=== PATIENT | female | born 1955 | race African-American/Black ===

== ENCOUNTER 2016-08-13 21:48 | Inpatient (IN) | payer MEDICAID ==
[~2016-08-13] VITALS: Ht 165.1 cm; Wt 67.2 kg
[~2016-08-13 21:48] MED LIST: AMLO10TA2 PO; AMLO5TAB2 PO; ATOR40TA78 PO; CHLO50TA PO; CYAN500L PO; CYCL5TAB PO; INSU100C SQ-INSULIN; INSU100I28 SQ-INSULIN; INSU100V8 SQ; LISI-170 PO; MORP50CA19 PO; NPH,100V SQ-VACC; NPH,100V4 SQ; POTA10TA11 PO
[2016-08-13] MEDS ORDERED: ONDANSETRON 2MG/ML, 2ML IVPush ONE (22:00)
[2016-08-13] MEDS ORDERED: SODIUM CHLORIDE FLUSH 10ML SYR IVF ONE (22:00)
[2016-08-13] MEDS ORDERED: MORPHINE SULFATE 4 MG/ML, 1ML IVPush PRN (22:00)
[2016-08-13] MEDS ORDERED: SODIUM CHLORIDE 0.9% 1,000ML IVBOLUS ONE (22:00)
[2016-08-13] MEDS ORDERED: MORPHINE SULFATE 4 MG/ML, 1ML ONE (22:05)
[2016-08-13] MEDS ORDERED: ONDANSETRON 2MG/ML, 2ML ONE (22:05)
[2016-08-13] MEDS ORDERED: HYDR12.53 PO (22:29)
[2016-08-13 22:38] LABS: ASPARTATE AMINO TRANSFERASE 37 U/L (15-37); BLOOD UREA NITROGEN 38 mg/dL (7-18)
[2016-08-13 22:46] LABS: DIFF TOTAL CELLS COUNTED 100 CELL DIFF
[2016-08-13 22:53] LABS: LARGE PLATELETS 1+; VERIFY COUNTS? YES
[2016-08-13 23:25] LABS: PH, VENOUS 7.291 pH (7.320-7.420)
[2016-08-14] MEDS ORDERED: ONDANSETRON 2MG/ML, 2ML IVPush PRN (02:00)
[2016-08-14] MEDS ORDERED: NITROGLYCERIN 0.4 MG BOTTLE (25 TABS) SL PRN (02:00)
[2016-08-14] MEDS ORDERED: ONDANSETRON ODT 4 MG PO PRN (02:00)
[2016-08-14] MEDS ORDERED: LABETALOL 5MG/ML, 20ML IVPush PRN (02:00)
[2016-08-14] MEDS ORDERED: DEXTROSE 50%, 50ML SYRINGE IVPush PRN (02:30)
[2016-08-14] MEDS ORDERED: GLUCAGON 1 MG IM PRN (02:30)
[2016-08-14] MEDS ORDERED: DEXTROSE 4 GM TAB.CHEW PO PRN (02:30)
[2016-08-14] MEDS: hydrALAzine 20 MG/ML, 1ML IVPush PRN (02:41)
[2016-08-14 02:54] VITALS: BP 189/111
[2016-08-14 03:05] VITALS: BP 142/84
[2016-08-14] MEDS: NICOTINE 7 MG/24 HR PATCH.TD24 TD SCH (03:34)
[2016-08-14] MEDS: HEPARIN 5,000 UNITS/ML, 1ML SQ SCH ×3 (03:36→17:37)
[2016-08-14] MEDS: NS + 20MEQ KCL 1,000 ML IV SCH ×3 (03:37→12:00)
[2016-08-14] MEDS: INSULIN ASPART 100 UNITS/ML, PEN SQ-INSULIN SCH ×5 (04:01→21:00)
[2016-08-14] MEDS ORDERED: INSULIN ASPART 70/30 100U/ML, PEN SQ-INSULIN ONE (04:51)
[2016-08-14 07:31] VITALS: BP 124/81
[2016-08-14] MEDS ORDERED: INSULIN NPH HUMAN 100 UNIT/ML, 3ML VIAL SQ-INSULIN SCH (09:00)
[2016-08-14] MEDS: LISINOPRIL 20 MG TABLET PO SCH (09:00)
[2016-08-14] MEDS: AMLODIPINE 5 MG TABLET PO SCH (09:00)
[2016-08-14] MEDS: SODIUM CHLORIDE FLUSH 10ML SYR IVF SCH ×2 (09:00→20:57)
[2016-08-14] MEDS ORDERED: CYCLOBENZAPRINE 10 MG TABLET PO SCH (09:00)
[2016-08-14] MEDS ORDERED: HYDROcodone/APAP 5/325 TABLET PO PRN (13:00)
[2016-08-14] MEDS ORDERED: CYCLOBENZAPRINE 10 MG TABLET PO PRN ×2 (13:00→14:00)
[2016-08-14 15:55] LABS: PATH.CAST-FLAG NOT PRESENT; SPERM-FLAG NOT PRESENT; SRC-FLAG NOT PRESENT; XTAL-FLAG NOT PRESENT; YLC-FLAG NOT PRESENT
[2016-08-14 20:47] VITALS: BP 167/97
[2016-08-14] MEDS: GABAPENTIN 100 MG CAPSULE PO SCH (20:57)
[2016-08-14] MEDS: ATORVASTATIN 40 MG TABLET PO SCH (20:57)
[2016-08-14] MEDS: RANITIDINE 15 MG/ML ORAL SOL PO SCH (21:07)
[2016-08-14] MEDS: INSULIN NPH HUMAN 100 UNIT/ML, 3ML VIAL SQ-INSULIN SCH (21:07)
[2016-08-14] MEDS: ACETAMINOPHEN 325 MG TABLET PO PRN (23:14)
[2016-08-14] MEDS: DIPHENHYDRAMINE 50 MG CAPSULE PO PRN (23:14)
[2016-08-15] MEDS: NS + 20MEQ KCL 1,000 ML IV SCH ×2 (00:48→11:25)
[2016-08-15] MEDS: HEPARIN 5,000 UNITS/ML, 1ML SQ SCH ×3 (03:06→18:09)
[2016-08-15 03:17] VITALS: BP 137/73
[2016-08-15 05:42] LABS: BLOOD UREA NITROGEN 21 mg/dL (7-18)
[2016-08-15 05:47] LABS: ASPARTATE AMINO TRANSFERASE 26 U/L (15-37)
[2016-08-15] MEDS: INSULIN ASPART 100 UNITS/ML, PEN SQ-INSULIN SCH ×5 (06:30→21:24)
[2016-08-15 06:56] VITALS: BP 149/84
[2016-08-15] MEDS: GABAPENTIN 100 MG CAPSULE PO SCH ×2 (09:46→21:16)
[2016-08-15] MEDS: SODIUM CHLORIDE FLUSH 10ML SYR IVF SCH ×2 (09:46→21:16)
[2016-08-15] MEDS: AMLODIPINE 5 MG TABLET PO SCH (09:46)
[2016-08-15] MEDS: LISINOPRIL 20 MG TABLET PO SCH (09:47)
[2016-08-15] MEDS: NICOTINE 7 MG/24 HR PATCH.TD24 TD SCH (09:47)
[2016-08-15] MEDS: RANITIDINE 15 MG/ML ORAL SOL PO SCH (09:47)
[2016-08-15] MEDS: INSULIN NPH HUMAN 100 UNIT/ML, 3ML VIAL SQ-INSULIN SCH ×2 (09:48→21:23)
[2016-08-15 12:52] VITALS: BP 144/88
[2016-08-15 18:45] VITALS: BP 150/91
[2016-08-15] MEDS: ATORVASTATIN 40 MG TABLET PO SCH (21:16)
[2016-08-15] MEDS: DIPHENHYDRAMINE 50 MG CAPSULE PO PRN (21:16)
[2016-08-15] MEDS: ACETAMINOPHEN 325 MG TABLET PO PRN (21:16)
[2016-08-16] VITALS (9 sets, daily range): BP systolic 106–172; BP diastolic 70–106
[2016-08-16] MEDS: HEPARIN 5,000 UNITS/ML, 1ML SQ SCH ×3 (00:37→16:46)
[2016-08-16] MEDS: POTASSIUM CHLORIDE 10 MEQ in SODIUM CHLORIDE 0.9% 1,000 ML IV SCH ×2 (06:07→16:00)
[2016-08-16] MEDS: INSULIN ASPART 100 UNITS/ML, PEN SQ-INSULIN SCH ×3 (06:56→16:00)
[2016-08-16] MEDS: AMLODIPINE 5 MG TABLET PO SCH (07:15)
[2016-08-16] MEDS: RANITIDINE 15 MG/ML ORAL SOL PO SCH (07:15)
[2016-08-16] MEDS: LISINOPRIL 20 MG TABLET PO SCH (07:15)
[2016-08-16] MEDS: GABAPENTIN 100 MG CAPSULE PO SCH (07:15)
[2016-08-16] MEDS: SODIUM CHLORIDE FLUSH 10ML SYR IVF SCH (07:31)
[2016-08-16] MEDS: INSULIN NPH HUMAN 100 UNIT/ML, 3ML VIAL SQ-INSULIN SCH (07:32)
[2016-08-16] MEDS: hydrALAzine 20 MG/ML, 1ML IVPush PRN ×2 (07:32→11:20)
[2016-08-16] MEDS: NICOTINE 7 MG/24 HR PATCH.TD24 TD SCH (07:32)
[2016-08-16] MEDS ORDERED: MIDAZOLAM 1 MG/ML, 5ML ONE (09:33)
[2016-08-16] MEDS ORDERED: FENTANYL PF 100 MCG/2ML ONE (09:33)
[2016-08-16] MEDS ORDERED: NALOXONE 1 MG/ML, 2ML ONE (09:34)
[2016-08-16] MEDS ORDERED: FLUMAZENIL 0.1 MG/1 ML, 5ML ONE (09:34)
[2016-08-16] MEDS ORDERED: GABA-826 PO (13:13)
[2016-08-16] MEDS ORDERED: CYCL5TAB PO (13:13)
[2016-08-16] MEDS ORDERED: ASPI-621 PO (13:13)
[2016-08-16] MEDS ORDERED: HYDR-3240 PO (15:48)
[2016-08-17] MEDS ORDERED: ASPIRIN 81 MG TABLET EC PO SCH (06:00)
== END 2016-08-16 19:00 | disposition home or self-care (01) | DRG 682 ==
LOC: ED 23:58 → EDIP 08-14 00:34 → 4NOR 08-14 02:00
PROVIDERS: ADMIT Family Medicine; ATTEND Family Medicine
PROC: 0BBL3ZX Excision of Left Lung, Percutaneous Approach, Diagnostic (ICD-10-PCS; principal; 2016-08-16)
DX: N17.9 Acute kidney failure, unspecified (principal); K85.90 Acute pancreatitis without necrosis or infection, unspecified; E87.2 Acidosis; E87.1 Hypo-osmolality and hyponatremia; E86.0 Dehydration; G89.29 Other chronic pain; K21.9 Gastro-esophageal reflux disease without esophagitis; E78.5 Hyperlipidemia, unspecified; F17.210 Nicotine dependence, cigarettes, uncomplicated; D64.9 Anemia, unspecified; I10 Essential (primary) hypertension; E11.65 Type 2 diabetes mellitus with hyperglycemia; E11.42 Type 2 diabetes mellitus with diabetic polyneuropathy; R91.8 Other nonspecific abnormal finding of lung field; Z91.19 Patient's noncompliance with other medical treatment and regimen; Z71.6 Tobacco abuse counseling; Z79.899 Other long term (current) drug therapy; Z79.4 Long term (current) use of insulin; Z82.5 Family history of asthma and other chronic lower respiratory diseases; Z83.3 Family history of diabetes mellitus
CPT/HCPCS: 32405; 36415; 71010; 74176; 77012; 80053; 81001; 82010; 82803; 82947; 82962; 83605; 83690; 83735; 84100; 85025; 87046; 87086; 87324; 87899; 88305; 89055; 96374; 96375; 99156; 99157; J1644; J1815; J2250; J2405; J3010; J3480; J0360; J2310; J7030

== ENCOUNTER 2016-10-02 15:59 | Inpatient (IN) | payer MEDICAID ==
[~2016-10-02] VITALS: Ht 165.1 cm; Wt 69.1 kg
[~2016-10-02 15:59] MED LIST changes: +ASPI-621 PO; +GABA-826 PO; +HYDR-3240 PO; +HYDR12.53 PO
[2016-10-02] MEDS ORDERED: SODIUM CHLORIDE 0.9% 1,000 ML IV ONE (16:09)
[2016-10-02] MEDS ORDERED: SODIUM CHLORIDE 0.9% 1,000ML IVBOLUS ONE (16:30)
[2016-10-02] MEDS ORDERED: SODIUM CHLORIDE FLUSH 10ML SYR IVF ONE (16:30)
[2016-10-02 16:35] LABS: HEMATOCRIT 33.1 % (34.6-47.8); HEMOGLOBIN 10.7 g/dL (11.7-16.4)
[2016-10-02 16:42] LABS: ASPARTATE AMINO TRANSFERASE 33 U/L (15-37); BLOOD UREA NITROGEN 20 mg/dL (7-18)
[2016-10-02] MEDS ORDERED: HYDR25TA11 PO (16:49)
[2016-10-02] MEDS ORDERED: CHLO50TA PO (16:49)
[2016-10-02] MEDS: SODIUM CHLORIDE 0.9% 1,000 ML IV SCH (18:49)
[2016-10-02] MEDS ORDERED: DEXTROSE 4 GM TAB.CHEW PO PRN (19:00)
[2016-10-02] MEDS ORDERED: BISACODYL 10 MG SUPP PR PRN (19:00)
[2016-10-02] MEDS ORDERED: GLUCAGON 1 MG IM PRN (19:00)
[2016-10-02] MEDS ORDERED: POLYETHYLENE GLYCOL 17 GM PACKET PO PRN (19:00)
[2016-10-02] MEDS ORDERED: hydrALAzine 20 MG/ML, 1ML IVPush PRN ×2 (19:00→23:00)
[2016-10-02] MEDS ORDERED: DEXTROSE 50%, 50ML SYRINGE IVPush PRN (19:00)
[2016-10-02] MEDS ORDERED: ONDANSETRON 2MG/ML, 2ML IVPush PRN (19:00)
[2016-10-02] MEDS ORDERED: DOCUSATE 100 MG CAPSULE PO PRN (19:00)
[2016-10-02 21:00] VITALS: BP 176/111
[2016-10-02] MEDS: HEPARIN 5,000 UNITS/ML, 1ML SQ SCH (21:32)
[2016-10-02] MEDS: GABAPENTIN 100 MG CAPSULE PO SCH (21:32)
[2016-10-02] MEDS: SODIUM CHLORIDE FLUSH 10ML SYR IVF SCH (21:32)
[2016-10-02] MEDS: ATORVASTATIN 40 MG TABLET PO SCH (21:32)
[2016-10-02] MEDS: INSULIN ASPART 100 UNITS/ML, PEN SQ-INSULIN SCH (21:33)
[2016-10-02] MEDS: INSULIN DETEMIR 100 UNITS/ML, PEN SQ-INSULIN SCH (21:34)
[2016-10-03 02:00] VITALS: BP 143/82
[2016-10-03 05:34] LABS: HEMATOCRIT 31.8 % (34.6-47.8); HEMOGLOBIN 10.4 g/dL (11.7-16.4); WHITE BLOOD COUNT 5.3 x10^3/uL (3.4-10)
[2016-10-03 05:51] LABS: BLOOD UREA NITROGEN 17 mg/dL (7-18)
[2016-10-03] MEDS: ASPIRIN 81 MG TABLET EC PO SCH (06:03)
[2016-10-03] MEDS: SODIUM CHLORIDE 0.9% 1,000 ML IV SCH ×2 (06:03→17:12)
[2016-10-03] MEDS: HEPARIN 5,000 UNITS/ML, 1ML SQ SCH ×3 (06:03→21:20)
[2016-10-03 08:03] VITALS: BP 154/94
[2016-10-03 08:23] LABS: PATH.CAST-FLAG NOT PRESENT; SPERM-FLAG NOT PRESENT; SRC-FLAG NOT PRESENT; XTAL-FLAG NOT PRESENT; YLC-FLAG NOT PRESENT
[2016-10-03] MEDS: INSULIN DETEMIR 100 UNITS/ML, PEN SQ-INSULIN SCH ×2 (08:26→21:20)
[2016-10-03] MEDS: INSULIN ASPART 100 UNITS/ML, PEN SQ-INSULIN SCH ×4 (08:27→21:21)
[2016-10-03] MEDS: GABAPENTIN 100 MG CAPSULE PO SCH ×2 (08:29→21:19)
[2016-10-03] MEDS: AMLODIPINE 5 MG TABLET PO SCH (08:29)
[2016-10-03] MEDS: CHLORTHALIDONE 25 MG TABLET PO SCH (08:29)
[2016-10-03] MEDS: LISINOPRIL 20 MG TABLET PO SCH (08:30)
[2016-10-03] MEDS: SODIUM CHLORIDE FLUSH 10ML SYR IVF SCH ×2 (08:30→21:19)
[2016-10-03 14:11] VITALS: BP 124/79
[2016-10-03] MEDS: HYDROcodone/APAP 5/325 TABLET PO PRN ×2 (14:18→21:19)
[2016-10-03 20:00] VITALS: BP 164/88
[2016-10-03] MEDS: ATORVASTATIN 40 MG TABLET PO SCH (21:19)
[2016-10-03] MEDS: CHOLESTYRAMINE LIGHT 4GM PACKET PO SCH (21:20)
[2016-10-04 02:00] VITALS: BP 151/82
[2016-10-04] MEDS: HEPARIN 5,000 UNITS/ML, 1ML SQ SCH ×3 (05:03→23:07)
[2016-10-04] MEDS: ASPIRIN 81 MG TABLET EC PO SCH (05:03)
[2016-10-04] MEDS: SODIUM CHLORIDE 0.9% 1,000 ML IV SCH (05:03)
[2016-10-04 05:59] LABS: BLOOD UREA NITROGEN 16 mg/dL (7-18)
[2016-10-04 06:58] VITALS: BP 155/88
[2016-10-04 07:09] VITALS: BP_SYST 148; BP_SYST 165; BP_DIAS 84; BP_DIAS 94
[2016-10-04] MEDS: AMLODIPINE 5 MG TABLET PO SCH (09:24)
[2016-10-04] MEDS: CHLORTHALIDONE 25 MG TABLET PO SCH (09:24)
[2016-10-04] MEDS: GABAPENTIN 100 MG CAPSULE PO SCH ×2 (09:24→20:52)
[2016-10-04] MEDS: CHOLESTYRAMINE LIGHT 4GM PACKET PO SCH ×2 (09:25→20:52)
[2016-10-04] MEDS: SODIUM CHLORIDE FLUSH 10ML SYR IVF SCH ×2 (09:25→20:52)
[2016-10-04] MEDS: LISINOPRIL 20 MG TABLET PO SCH (09:25)
[2016-10-04] MEDS: INSULIN ASPART 100 UNITS/ML, PEN SQ-INSULIN SCH ×4 (09:27→20:53)
[2016-10-04] MEDS: INSULIN DETEMIR 100 UNITS/ML, PEN SQ-INSULIN SCH ×2 (09:28→20:54)
[2016-10-04 14:01] VITALS: BP 146/83
[2016-10-04 18:45] VITALS: BP 152/90
[2016-10-04] MEDS: ATORVASTATIN 40 MG TABLET PO SCH (20:52)
[2016-10-04] MEDS: HYDROcodone/APAP 5/325 TABLET PO PRN (20:53)
[2016-10-05 03:58] VITALS: BP 143/80
[2016-10-05] MEDS: ASPIRIN 81 MG TABLET EC PO SCH (05:31)
[2016-10-05 06:47] VITALS: BP 156/93
[2016-10-05] MEDS: INSULIN ASPART 100 UNITS/ML, PEN SQ-INSULIN SCH ×2 (07:00→11:00)
[2016-10-05] MEDS: INSULIN DETEMIR 100 UNITS/ML, PEN SQ-INSULIN SCH (08:33)
[2016-10-05] MEDS: CHOLESTYRAMINE LIGHT 4GM PACKET PO SCH (08:34)
[2016-10-05] MEDS: GABAPENTIN 100 MG CAPSULE PO SCH (08:34)
[2016-10-05] MEDS: HEPARIN 5,000 UNITS/ML, 1ML SQ SCH (08:34)
[2016-10-05] MEDS: LISINOPRIL 20 MG TABLET PO SCH (08:35)
[2016-10-05] MEDS: AMLODIPINE 5 MG TABLET PO SCH (08:35)
[2016-10-05] MEDS: CHLORTHALIDONE 25 MG TABLET PO SCH (08:35)
[2016-10-05] MEDS: SODIUM CHLORIDE FLUSH 10ML SYR IVF SCH (08:35)
[2016-10-05] MEDS ORDERED: CHOL239. PO (13:41)
[2016-10-05 14:24] VITALS: BP 145/94
== END 2016-10-05 16:32 | disposition home health service (06) | DRG 683 ==
LOC: ED 18:42 → EDIP 18:50 → 4WST 20:03 → DCLOUNGE 10-05 16:20
PROVIDERS: ADMIT Family Medicine; ATTEND Family Medicine
DX: N17.9 Acute kidney failure, unspecified (principal); F19.20 Other psychoactive substance dependence, uncomplicated; E10.65 Type 1 diabetes mellitus with hyperglycemia; I10 Essential (primary) hypertension; D64.9 Anemia, unspecified; E87.5 Hyperkalemia; E66.01 Morbid (severe) obesity due to excess calories; Z68.25 Body mass index [BMI] 25.0-25.9, adult; E86.0 Dehydration; F17.200 Nicotine dependence, unspecified, uncomplicated; G40.909 Epilepsy, unspecified, not intractable, without status epilepticus; G89.29 Other chronic pain; J45.909 Unspecified asthma, uncomplicated; K52.9 Noninfective gastroenteritis and colitis, unspecified; K62.89 Other specified diseases of anus and rectum
CPT/HCPCS: 36415; 74022; 80048; 80053; 81001; 82010; 82962; 83036; 83605; 83690; 85025; 85610; 85730; 87324; 89055; 96360; 96361; J1644; J1815; J0360; J7030

== ENCOUNTER 2016-10-16 09:08 | Inpatient (IN) | payer MEDICAID ==
[~2016-10-16] VITALS: Ht 165.1 cm; Wt 84.9 kg
[~2016-10-16 09:08] MED LIST changes: +CHOL239. PO; -CYAN500L PO; +CYAN500L2 PO; +DIPH1TAB PO; +HYDR25TA11 PO; +INSU100I13 SC; +METF10002 PO; -NPH,100V4 SQ; +NPH,100V5 SQ
[2016-10-16] MEDS ORDERED: CEFAZOLIN PMX 1GM/50ML 50 ML IVPB ONE (09:30)
[2016-10-16] MEDS ORDERED: MORPHINE SULFATE 4 MG/ML, 1ML IVPush PRN (09:30)
[2016-10-16] MEDS ORDERED: SODIUM CHLORIDE FLUSH 10ML SYR IVF ONE (09:30)
[2016-10-16 10:02] LABS: HEMATOCRIT 29.2 % (34.6-47.8); HEMOGLOBIN 9.4 g/dL (11.7-16.4); WHITE BLOOD COUNT 12.6 x10^3/uL (3.4-10)
[2016-10-16] MEDS ORDERED: MORPHINE SULFATE 4 MG/ML, 1ML ONE (10:05)
[2016-10-16] MEDS ORDERED: CEFAZOLIN PMX 1GM/50ML 50 ML ONE (10:13)
[2016-10-16 10:29] LABS: BLOOD UREA NITROGEN 29 mg/dL (7-18)
[2016-10-16] MEDS ORDERED: SODIUM CHLORIDE 0.9% 1,000ML IVBOLUS ONE (11:30)
[2016-10-16] MEDS ORDERED: PHARMACY MAY ADJ FOR RENAL FX MC PRN (14:30)
[2016-10-16] MEDS ORDERED: ENOXAPARIN 40 MG/0.4 ML SQ SCH (14:30)
[2016-10-16] MEDS ORDERED: ONDANSETRON ODT 4 MG PO PRN (14:30)
[2016-10-16] MEDS ORDERED: CYCLOBENZAPRINE 10 MG TABLET PO PRN (14:30)
[2016-10-16] MEDS ORDERED: LABETALOL 5MG/ML, 20ML IVPush PRN (14:30)
[2016-10-16] MEDS ORDERED: ONDANSETRON 2MG/ML, 2ML IVPush PRN (14:30)
[2016-10-16] MEDS ORDERED: BISACODYL 10 MG SUPP PR PRN (14:30)
[2016-10-16] MEDS ORDERED: GUAIFENESIN/DM 200-20MG, 10ML UDC PO PRN (14:30)
[2016-10-16] MEDS: AMPICILLIN/SULBACTAM 3 GM in SODIUM CHLORIDE 0.9% 100 ML IV SCH ×2 (15:04→20:59)
[2016-10-16] MEDS: SODIUM CHLORIDE 0.9% 1,000 ML IV SCH ×2 (15:04→23:03)
[2016-10-16] MEDS: HEPARIN 5,000 UNITS/ML, 1ML SQ SCH ×2 (15:06→23:03)
[2016-10-16] MEDS: morphine SULFATE 10 MG/ML, 1ML IVPush PRN (15:07)
[2016-10-16] MEDS: ISOSORBIDE MONONITRATE ER 30 MG TABLET PO SCH (15:51)
[2016-10-16 15:53] VITALS: BP 140/79
[2016-10-16] MEDS ORDERED: DEXTROSE 4 GM TAB.CHEW PO PRN (17:30)
[2016-10-16] MEDS ORDERED: DEXTROSE 50%, 50ML SYRINGE IVPush PRN (17:30)
[2016-10-16] MEDS ORDERED: GLUCAGON 1 MG IM PRN (17:30)
[2016-10-16] MEDS: INSULIN ASPART 100 UNITS/ML, PEN SQ-INSULIN SCH ×2 (18:42→21:00)
[2016-10-16 18:54] VITALS: BP 151/84
[2016-10-16] MEDS: DOXYCYCLINE 100MG TABLET PO SCH (20:59)
[2016-10-16] MEDS: GABAPENTIN 100 MG CAPSULE PO SCH (20:59)
[2016-10-16] MEDS: ATORVASTATIN 40 MG TABLET PO SCH (20:59)
[2016-10-16] MEDS ORDERED: INSULIN DETEMIR 100 UNITS/ML, PEN SQ-INSULIN SCH (21:00)
[2016-10-16] MEDS: SODIUM CHLORIDE FLUSH 10ML SYR IVF SCH (21:00)
[2016-10-16] MEDS ORDERED: FAMOTIDINE 20 MG/2 ML IVPush SCH (21:00)
[2016-10-17 01:55] VITALS: BP 116/74
[2016-10-17] MEDS: AMPICILLIN/SULBACTAM 3 GM in SODIUM CHLORIDE 0.9% 100 ML IV SCH ×4 (02:44→21:18)
[2016-10-17] MEDS: morphine SULFATE 10 MG/ML, 1ML IVPush PRN ×4 (05:32→23:20)
[2016-10-17 05:33] LABS: HEMATOCRIT 24.7 % (34.6-47.8); WHITE BLOOD COUNT 9.4 x10^3/uL (3.4-10)
[2016-10-17] MEDS: ASPIRIN 81 MG TABLET EC PO SCH (05:35)
[2016-10-17 05:46] LABS: BLOOD UREA NITROGEN 24 mg/dL (7-18)
[2016-10-17 05:50] LABS: ASPARTATE AMINO TRANSFERASE 30 U/L (15-37)
[2016-10-17] MEDS: INSULIN ASPART 100 UNITS/ML, PEN SQ-INSULIN SCH ×4 (07:17→21:23)
[2016-10-17] MEDS: SODIUM CHLORIDE 0.9% 1,000 ML IV SCH ×3 (07:40→23:21)
[2016-10-17] MEDS: HEPARIN 5,000 UNITS/ML, 1ML SQ SCH ×3 (07:40→23:20)
[2016-10-17] MEDS: SODIUM CHLORIDE FLUSH 10ML SYR IVF SCH ×2 (07:41→21:24)
[2016-10-17] MEDS: GABAPENTIN 100 MG CAPSULE PO SCH ×2 (07:44→21:19)
[2016-10-17] MEDS: LISINOPRIL 20 MG TABLET PO SCH (07:45)
[2016-10-17] MEDS: AMLODIPINE 5 MG TABLET PO SCH (07:45)
[2016-10-17] MEDS: DOXYCYCLINE 100MG TABLET PO SCH ×2 (07:45→21:19)
[2016-10-17] MEDS: ISOSORBIDE MONONITRATE ER 30 MG TABLET PO SCH (07:45)
[2016-10-17] MEDS: SENNA/DOCUSATE TABLET PO SCH (07:45)
[2016-10-17 07:54] VITALS: BP 137/76
[2016-10-17 10:29] LABS: C-REACTIVE PROTEIN, QUANT 2.9 mg/dL (0.02-0.49)
[2016-10-17 13:57] VITALS: BP 141/76
[2016-10-17 19:13] VITALS: BP 116/65
[2016-10-17] MEDS: ATORVASTATIN 40 MG TABLET PO SCH (21:19)
[2016-10-17] MEDS: INSULIN DETEMIR 100 UNITS/ML, PEN SQ-INSULIN SCH (21:22)
[2016-10-18 02:13] VITALS: BP 138/83
[2016-10-18] MEDS: AMPICILLIN/SULBACTAM 3 GM in SODIUM CHLORIDE 0.9% 100 ML IV SCH ×2 (03:15→10:00)
[2016-10-18] MEDS: morphine SULFATE 10 MG/ML, 1ML IVPush PRN ×2 (03:23→10:00)
[2016-10-18 05:00] LABS: HEMATOCRIT 24.5 % (34.6-47.8); HEMOGLOBIN 7.9 g/dL (11.7-16.4); WHITE BLOOD COUNT 7.6 x10^3/uL (3.4-10)
[2016-10-18 05:17] LABS: BLOOD UREA NITROGEN 26 mg/dL (7-18)
[2016-10-18] MEDS: ASPIRIN 81 MG TABLET EC PO SCH (05:56)
[2016-10-18 07:25] VITALS: BP 164/95
[2016-10-18] MEDS: HEPARIN 5,000 UNITS/ML, 1ML SQ SCH ×3 (07:31→23:25)
[2016-10-18] MEDS: GABAPENTIN 100 MG CAPSULE PO SCH ×2 (07:33→21:09)
[2016-10-18] MEDS: INSULIN ASPART 100 UNITS/ML, PEN SQ-INSULIN SCH ×4 (07:33→21:09)
[2016-10-18] MEDS: DOXYCYCLINE 100MG TABLET PO SCH ×2 (07:34→21:09)
[2016-10-18] MEDS: AMLODIPINE 5 MG TABLET PO SCH (07:36)
[2016-10-18] MEDS: SENNA/DOCUSATE TABLET PO SCH (07:37)
[2016-10-18] MEDS: LISINOPRIL 20 MG TABLET PO SCH (07:37)
[2016-10-18] MEDS: ISOSORBIDE MONONITRATE ER 30 MG TABLET PO SCH (07:37)
[2016-10-18] MEDS: SODIUM CHLORIDE FLUSH 10ML SYR IVF SCH ×2 (07:38→21:10)
[2016-10-18] MEDS: SODIUM CHLORIDE 0.9% 1,000 ML IV SCH ×2 (07:39→19:45)
[2016-10-18 11:24] LABS: FERRITIN 151.6 ng/mL (8-252)
[2016-10-18 12:29] VITALS: BP 149/79
[2016-10-18] MEDS: HYDROcodone/APAP 5/325 TABLET PO PRN ×2 (15:08→19:59)
[2016-10-18 19:52] VITALS: BP 136/77
[2016-10-18] MEDS: INSULIN DETEMIR 100 UNITS/ML, PEN SQ-INSULIN SCH (21:08)
[2016-10-18] MEDS: ATORVASTATIN 40 MG TABLET PO SCH (21:09)
[2016-10-19] MEDS: ASPIRIN 81 MG TABLET EC PO SCH (06:00)
[2016-10-19] MEDS: INSULIN ASPART 100 UNITS/ML, PEN SQ-INSULIN SCH ×4 (07:00→20:31)
[2016-10-19] MEDS: HEPARIN 5,000 UNITS/ML, 1ML SQ SCH ×2 (07:30→15:30)
[2016-10-19 08:18] LABS: ASPARTATE AMINO TRANSFERASE 59 U/L (15-37); BLOOD UREA NITROGEN 29 mg/dL (7-18)
[2016-10-19 08:23] LABS: HEMATOCRIT 25.2 % (34.6-47.8); HEMOGLOBIN 8.2 g/dL (11.7-16.4); WHITE BLOOD COUNT 6.2 x10^3/uL (3.4-10)
[2016-10-19] MEDS: SENNA/DOCUSATE TABLET PO SCH (09:00)
[2016-10-19 09:27] VITALS: BP 161/91
[2016-10-19] MEDS: SODIUM CHLORIDE FLUSH 10ML SYR IVF SCH ×2 (11:29→20:30)
[2016-10-19] MEDS: GABAPENTIN 100 MG CAPSULE PO SCH ×2 (11:29→20:29)
[2016-10-19] MEDS: LISINOPRIL 20 MG TABLET PO SCH (11:29)
[2016-10-19] MEDS: ISOSORBIDE MONONITRATE ER 30 MG TABLET PO SCH (11:30)
[2016-10-19] MEDS: AMLODIPINE 5 MG TABLET PO SCH (11:31)
[2016-10-19] MEDS: DOXYCYCLINE 100MG TABLET PO SCH ×2 (11:32→20:29)
[2016-10-19] MEDS: SODIUM CHLORIDE 0.9% 1,000 ML IV SCH (11:34)
[2016-10-19] MEDS: HYDROcodone/APAP 5/325 TABLET PO PRN ×2 (13:56→21:27)
[2016-10-19 14:07] VITALS: BP 144/88
[2016-10-19] MEDS: IRON SUCROSE COMPLEX 100MG/5ML IV SCH (15:42)
[2016-10-19] MEDS ORDERED: PHARMACY MAY ADJ FOR RENAL FX MC PRN (16:00)
[2016-10-19] MEDS: ALBUMIN HUMAN 25% 100 ML IV SCH ×2 (16:00→22:12)
[2016-10-19] MEDS: FUROSEMIDE 20 MG/2 ML IV SCH (17:00)
[2016-10-19 18:43] VITALS: BP 118/70
[2016-10-19] MEDS: ATORVASTATIN 40 MG TABLET PO SCH (20:29)
[2016-10-19] MEDS: INSULIN DETEMIR 100 UNITS/ML, PEN SQ-INSULIN SCH (20:30)
[2016-10-20] VITALS (10 sets, daily range): BP systolic 134–185; BP diastolic 83–101
[2016-10-20] MEDS: HEPARIN 5,000 UNITS/ML, 1ML SQ SCH ×4 (00:06→23:48)
[2016-10-20] MEDS: HYDROcodone/APAP 5/325 TABLET PO PRN ×3 (03:07→20:55)
[2016-10-20] MEDS: ALBUMIN HUMAN 25% 100 ML IV SCH ×3 (03:52→22:05)
[2016-10-20 05:10] LABS: HEMOGLOBIN 7.3 g/dL (11.7-16.4); WHITE BLOOD COUNT 5.8 x10^3/uL (3.4-10)
[2016-10-20 05:24] LABS: ASPARTATE AMINO TRANSFERASE 79 U/L (15-37); BLOOD UREA NITROGEN 33 mg/dL (7-18)
[2016-10-20] MEDS: ASPIRIN 81 MG TABLET EC PO SCH (05:53)
[2016-10-20 06:17] LABS: HEMATOCRIT 22.8 % (34.6-47.8)
[2016-10-20 08:20] LABS: TOTAL IRON BINDING CAPACITY 192 mcg/dL (250-450)
[2016-10-20] MEDS: SENNA/DOCUSATE TABLET PO SCH (09:00)
[2016-10-20] MEDS: INSULIN ASPART 100 UNITS/ML, PEN SQ-INSULIN SCH ×4 (09:32→20:46)
[2016-10-20] MEDS: FUROSEMIDE 20 MG/2 ML IV SCH ×2 (09:33→18:19)
[2016-10-20] MEDS: IRON SUCROSE COMPLEX 100MG/5ML IV SCH (09:33)
[2016-10-20] MEDS: DOXYCYCLINE 100MG TABLET PO SCH ×2 (09:34→20:44)
[2016-10-20] MEDS: SODIUM CHLORIDE FLUSH 10ML SYR IVF SCH ×2 (09:34→20:45)
[2016-10-20] MEDS: AMLODIPINE 5 MG TABLET PO SCH (09:34)
[2016-10-20] MEDS: GABAPENTIN 100 MG CAPSULE PO SCH ×2 (09:35→20:45)
[2016-10-20] MEDS: ISOSORBIDE MONONITRATE ER 30 MG TABLET PO SCH (09:35)
[2016-10-20] MEDS: LISINOPRIL 20 MG TABLET PO SCH ×2 (16:28→20:45)
[2016-10-20] MEDS: ATORVASTATIN 40 MG TABLET PO SCH (20:45)
[2016-10-20] MEDS: INSULIN DETEMIR 100 UNITS/ML, PEN SQ-INSULIN SCH (20:46)
[2016-10-21 00:31] LABS: OCCBLD OBC PASS
[2016-10-21 01:13] VITALS: BP 143/81
[2016-10-21] MEDS: ALBUMIN HUMAN 25% 100 ML IV SCH ×4 (04:31→22:26)
[2016-10-21 05:50] LABS: BLOOD UREA NITROGEN 34 mg/dL (7-18)
[2016-10-21] MEDS: ASPIRIN 81 MG TABLET EC PO SCH (06:00)
[2016-10-21 06:01] LABS: HEMATOCRIT 30.5 % (34.6-47.8); HEMOGLOBIN 10.1 g/dL (11.7-16.4); WHITE BLOOD COUNT 7.4 x10^3/uL (3.4-10)
[2016-10-21] MEDS: INSULIN ASPART 100 UNITS/ML, PEN SQ-INSULIN SCH ×4 (07:00→19:36)
[2016-10-21 07:13] VITALS: BP 166/96
[2016-10-21 07:43] LABS: ANISOCYTOSIS 1+; POIKILOCYTOSIS 1+; SPHEROCYTES 1+
[2016-10-21] MEDS ORDERED: LISINOPRIL 20 MG TABLET PO SCH (09:00)
[2016-10-21] MEDS: ISOSORBIDE MONONITRATE ER 30 MG TABLET PO SCH (09:00)
[2016-10-21] MEDS: SENNA/DOCUSATE TABLET PO SCH (09:00)
[2016-10-21] MEDS: IRON SUCROSE COMPLEX 100MG/5ML IV SCH (09:42)
[2016-10-21] MEDS: HEPARIN 5,000 UNITS/ML, 1ML SQ SCH ×3 (09:42→22:26)
[2016-10-21] MEDS: FUROSEMIDE 20 MG/2 ML IV SCH ×2 (09:42→17:39)
[2016-10-21] MEDS: GABAPENTIN 100 MG CAPSULE PO SCH ×2 (09:43→19:22)
[2016-10-21] MEDS: DOXYCYCLINE 100MG TABLET PO SCH ×2 (09:43→19:22)
[2016-10-21] MEDS: SODIUM CHLORIDE FLUSH 10ML SYR IVF SCH ×2 (09:43→19:14)
[2016-10-21] MEDS: LISINOPRIL 20 MG TABLET PO SCH ×2 (09:44→19:22)
[2016-10-21] MEDS: AMLODIPINE 5 MG TABLET PO SCH (09:44)
[2016-10-21] MEDS: HYDROcodone/APAP 5/325 TABLET PO PRN ×2 (14:07→19:22)
[2016-10-21 14:50] VITALS: BP 126/78
[2016-10-21 18:38] VITALS: BP 145/88
[2016-10-21] MEDS: ATORVASTATIN 40 MG TABLET PO SCH (19:23)
[2016-10-21] MEDS: INSULIN DETEMIR 100 UNITS/ML, PEN SQ-INSULIN SCH (19:36)
[2016-10-22 01:17] VITALS: BP 157/87
[2016-10-22 05:06] LABS: HEMATOCRIT 30.2 % (34.6-47.8); WHITE BLOOD COUNT 7.2 x10^3/uL (3.4-10)
[2016-10-22 05:12] LABS: BLOOD UREA NITROGEN 35 mg/dL (7-18)
[2016-10-22] MEDS: ALBUMIN HUMAN 25% 100 ML IV SCH ×4 (05:27→21:46)
[2016-10-22] MEDS: ASPIRIN 81 MG TABLET EC PO SCH (05:27)
[2016-10-22] MEDS: HYDROcodone/APAP 5/325 TABLET PO PRN ×5 (05:31→23:48)
[2016-10-22 06:38] VITALS: BP 157/91
[2016-10-22] MEDS: INSULIN ASPART 100 UNITS/ML, PEN SQ-INSULIN SCH ×4 (07:00→21:50)
[2016-10-22] MEDS: FUROSEMIDE 20 MG/2 ML IV SCH ×2 (08:19→16:41)
[2016-10-22] MEDS: HEPARIN 5,000 UNITS/ML, 1ML SQ SCH ×3 (08:19→23:49)
[2016-10-22] MEDS: SENNA/DOCUSATE TABLET PO SCH (09:00)
[2016-10-22] MEDS: SODIUM CHLORIDE FLUSH 10ML SYR IVF SCH ×2 (09:41→21:48)
[2016-10-22] MEDS: IRON SUCROSE COMPLEX 100MG/5ML IV SCH (09:41)
[2016-10-22] MEDS: AMLODIPINE 5 MG TABLET PO SCH (09:42)
[2016-10-22] MEDS: DOXYCYCLINE 100MG TABLET PO SCH ×2 (09:42→21:47)
[2016-10-22] MEDS: ISOSORBIDE MONONITRATE ER 30 MG TABLET PO SCH (09:42)
[2016-10-22] MEDS: GABAPENTIN 100 MG CAPSULE PO SCH ×2 (09:42→21:47)
[2016-10-22] MEDS: LISINOPRIL 20 MG TABLET PO SCH ×2 (09:42→21:47)
[2016-10-22 12:30] VITALS: BP 148/86
[2016-10-22 18:25] VITALS: BP 161/95
[2016-10-22] MEDS: ATORVASTATIN 40 MG TABLET PO SCH (21:47)
[2016-10-22] MEDS: INSULIN DETEMIR 100 UNITS/ML, PEN SQ-INSULIN SCH (21:49)
[2016-10-22] MEDS: NYSTATIN TOPICAL POWDER 15GM TP SCH (23:48)
[2016-10-23 00:14] VITALS: BP 155/87
[2016-10-23 05:21] LABS: HEMATOCRIT 31.2 % (34.6-47.8); HEMOGLOBIN 10.2 g/dL (11.7-16.4); WHITE BLOOD COUNT 7.1 x10^3/uL (3.4-10)
[2016-10-23 05:25] LABS: BLOOD UREA NITROGEN 39 mg/dL (7-18)
[2016-10-23] MEDS: HYDROcodone/APAP 5/325 TABLET PO PRN ×2 (05:29→09:45)
[2016-10-23] MEDS: ASPIRIN 81 MG TABLET EC PO SCH (05:29)
[2016-10-23] MEDS: NYSTATIN TOPICAL POWDER 15GM TP SCH ×2 (05:44→11:54)
[2016-10-23 06:49] VITALS: BP 166/104
[2016-10-23] MEDS: INSULIN ASPART 100 UNITS/ML, PEN SQ-INSULIN SCH ×2 (07:00→11:55)
[2016-10-23] MEDS: HEPARIN 5,000 UNITS/ML, 1ML SQ SCH (08:01)
[2016-10-23] MEDS: IRON SUCROSE COMPLEX 100MG/5ML IV SCH (08:02)
[2016-10-23] MEDS: SODIUM CHLORIDE FLUSH 10ML SYR IVF SCH (08:02)
[2016-10-23] MEDS: LISINOPRIL 20 MG TABLET PO SCH (08:03)
[2016-10-23] MEDS: DOXYCYCLINE 100MG TABLET PO SCH (08:03)
[2016-10-23] MEDS: ISOSORBIDE MONONITRATE ER 30 MG TABLET PO SCH (08:03)
[2016-10-23] MEDS: AMLODIPINE 5 MG TABLET PO SCH (08:03)
[2016-10-23] MEDS: GABAPENTIN 100 MG CAPSULE PO SCH (08:03)
[2016-10-23] MEDS: SENNA/DOCUSATE TABLET PO SCH (08:04)
[2016-10-23] MEDS: ALBUMIN HUMAN 25% 100 ML IV SCH (09:45)
[2016-10-23] MEDS: FUROSEMIDE 20 MG/2 ML IV SCH (10:22)
[2016-10-23] MEDS ORDERED: DOXY100T PO (12:58)
[2016-10-23] MEDS ORDERED: NYST60PO TP (12:59)
[2016-10-23] MEDS ORDERED: FERR325T18 PO (12:59)
== END 2016-10-23 13:46 | disposition home or self-care (01) | DRG 682 ==
LOC: ED 11:23 → EDIP 11:24 → 3NE 12:45
PROVIDERS: ADMIT Hospitalist; ATTEND Hospitalist
PROC: 30233N1 Transfusion of Nonautologous Red Blood Cells into Peripheral Vein, Percutaneous Approach (ICD-10-PCS; principal; 2016-10-20)
DX: N17.9 Acute kidney failure, unspecified (principal); E43 Unspecified severe protein-calorie malnutrition; I50.30 Unspecified diastolic (congestive) heart failure; I11.0 Hypertensive heart disease with heart failure; L03.115 Cellulitis of right lower limb; D64.9 Anemia, unspecified; W19.XXXA Unspecified fall, initial encounter; E78.5 Hyperlipidemia, unspecified; F17.210 Nicotine dependence, cigarettes, uncomplicated; J45.909 Unspecified asthma, uncomplicated; M19.90 Unspecified osteoarthritis, unspecified site; R26.2 Difficulty in walking, not elsewhere classified; E11.65 Type 2 diabetes mellitus with hyperglycemia; Y92.89 Other specified places as the place of occurrence of the external cause; Z68.31 Body mass index [BMI] 31.0-31.9, adult; Y93.89 Activity, other specified; Z79.4 Long term (current) use of insulin; Z82.49 Family history of ischemic heart disease and other diseases of the circulatory system; Z83.3 Family history of diabetes mellitus
CPT/HCPCS: 36415; 76770; 80048; 80053; 81001; 82040; 82272; 82550; 82570; 82728; 82962; 83036; 83540; 83550; 83605; 83880; 84156; 84300; 84439; 85025; 85610; 85651; 86140; 86850; 86900; 86923; 87040; 87086; 87106; 93306; 96365; 96375; J0295; J0690; J1644; J1756; J1815; P9047; J1940; J2270; J7030; P9016